=== PATIENT | female | born 1980 | race Caucasian/White ===

== ENCOUNTER 2016-10-12 02:31 | Outpatient (CLI) | payer MEDICAID ==
[~2016-10-12] VITALS: Ht 154.9 cm; Wt 93.0 kg
[2016-10-12 02:55] VITALS: BP 160/99
[2016-10-12 03:24] LABS: URINE BILIRUBIN - DIPSTICK NEGATIVE (NEG); URINE BLOOD TRACE-INTACT (NEG)
[2016-10-12 05:00] LABS: HEMOGLOBIN 12.4 g/dL (12.2-16.2); LYMPH # 2.7 K/mm3 (0.7-4.5); LYMPH % 24.4 % (10-50.0)
== END 2016-10-12 05:20 | disposition home or self-care (01) ==
LOC: OB 02:31 → OBOUT 02:31
PROVIDERS: Obstetrics & Gynecology
DX: O26.93 Pregnancy related conditions, unspecified, third trimester (principal); Z3A.39 39 weeks gestation of pregnancy; R10.9 Unspecified abdominal pain; R19.7 Diarrhea, unspecified

== ENCOUNTER 2016-10-17 00:21 | Inpatient (IN) | payer MEDICAID ==
[~2016-10-17] VITALS: Ht 154.9 cm; Wt 92.1 kg
[2016-10-17 05:08] VITALS: BP 169/97
[2016-10-17] MEDS ORDERED: NOMEDS XX (05:23)
--- NOTE | 2016-10-17 05:59 | ACUTE CARE PROGRESS NOTE (QUA) ---
Progress Notes Subjective Date 10/17/16 Time 0557 Note This 36-year-old 4, para 2, Ab1 white female was admitted at 39-6/7 weeks with irregular contractions. Her cervix is 2 cm dilated, 75 percent effaced, with a high presenting vertex. Bag of water intact. Her blood pressure is 159/88. Her deep tendon reflexes are normal. The plan is to administer an epidural, and augmented with intravenous Pitocin. If her blood pressure remains elevated, we will start on magnesium sulfate. She also desires a tubal ligation. Assessment/Plan This inpt stay is expected to cross 2 MNs from start of care Yes (OB delivery) at 8634
[2016-10-17 06:15] LABS: HEMOGLOBIN 12.5 g/dL (12.2-16.2)
[2016-10-17 06:16] LABS: LYMPH # 2.8 K/mm3 (0.7-4.5); LYMPH % 32.2 % (10-50.0)
[2016-10-17 06:59] LABS: ABO BLOOD TYPE AB
[2016-10-17 07:00] LABS: RH BLOOD TYPE POSITIVE
[2016-10-17 09:04] LABS: URINE BLOOD TRACE-INTACT (NEG)
[2016-10-17 09:21] LABS: URINE BILIRUBIN - DIPSTICK NEGATIVE (NEG)
--- NOTE | 2016-10-17 09:42 | ACUTE CARE PROGRESS NOTE (QUA) ---
Progress Notes Subjective Date 10/17/16 Time 0940 Note The patient is having good contractions and has an epidural in situ. Cervix is now 3 cm and 90 percent, with presenting vertex at -2 station. Amniotomy reveals clear fluid, and an internal monitors placed. Her blood pressure is 126/68. DTRs are normal. Intravenous Pitocin is on board. Assessment/Plan This inpt stay is expected to cross 2 MNs from start of care Yes (OB delivery) at 0920
--- NOTE | 2016-10-17 11:27 | ACUTE CARE PROGRESS NOTE (QUA) ---
Progress Notes Subjective Date 10/17/16 Time 1126 Note The baby looks good on the monitor, and the patient is having strong regular contractions. Cervix is 90 percent, 5 cm, with the presenting vertex still very high. Plan: Continue to observe on IV Pitocin. Assessment/Plan This inpt stay is expected to cross 2 MNs from start of care Yes (OB delivery) at 1126
--- NOTE | 2016-10-17 12:45 | ACUTE CARE PROGRESS NOTE (QUA) ---
Progress Notes Subjective Date 10/17/16 Time 1243 Note Cervix is now completely effaced and 5-6 cm but the head is still quite high and locked above the pelvis. Baby still looks good on the monitor. The plan is to observe. I discussed the possibility of with the patient and her . Assessment/Plan This inpt stay is expected to cross 2 MNs from start of care Yes (OB delivery) at 1242
--- NOTE | 2016-10-17 14:39 | ACUTE CARE PROGRESS NOTE (QUA) ---
Progress Notes Subjective Date 10/17/16 Time 1438 Note In spite of good contractions, there is been no progress whatsoever and no descent whatsoever. I've discussed this with the patient and her . The plan is for primary and bilateral tubal ligation. Intravenous Pitocin has been discontinued. Assessment/Plan This inpt stay is expected to cross 2 MNs from start of care Yes (OB delivery) at 1432
--- NOTE | 2016-10-17 16:59 | Operative Note ---
Procedure/Operative Record Date of Procedure: 10/17/16 Referring physician: Dr. Garcia Pre-op diagnosis: 1. Term intrauterine . 2. Cephalopelvic disproportion. 3. Failure to progress. 4. Desire for sterilization. Post-op diagnosis: Same, 9/9, 7 lbs. 14 oz., 19 inch female , born at 1610. Procedure performed: Primary low transverse cervical section and bilateral tubal ligation. Surgeon: Joe Burnham Plastic Eye Technician(s): Dr. Smalls Anesthesia: Epidural, CIRCUS TRAIN SUPERVISOR Feeback Indications: 1. Term intrauterine . 2. Cephalopelvic disproportion. 3. Failure to progress. 4. Desire for sterilization. Description of procedure: After the patient was prepped and draped in usual fashion and epidural anesthesia was activated, a low Pfannenstiel incision was made across the midline, and the fat and fascia were in usual fashion, bleeders being clamped and coagulated along the way. The peritoneum was entered with a knife, and extended above and below with Metzenbaum scissors. The bladder peritoneum was sharply and bluntly dissected from the area of incision, and the bladder was protected with a bladder blade. Low transverse fashion with a knife, and the incision was extended bluntly, bilaterally. The baby was found to be in the OP position of the vertex and, with appropriate fundal pressure, the head was easily delivered. There was no nuchal cord, no was there any meconium. The babies naso-and oropharynx were bulb suctioned, and the baby cried spontaneously on the abdomen, as was delivered. The cord was clamped and cut, 3 vessels were noted to be within the cord, and cord blood was obtained. The cord pH was 7.32. The baby was handed into the arms of the attending clinical nursing director, Dr. Garcia, who assigned Apgars of 9 at 1 minute and 9 at 5 minutes to this 7 lbs. 14 oz., 19 inch female , born at 1610. In excellent condition, along with the father, who at the present in the operating room. The uterus was closed in 2 layers, the first a running locked suture of #1 Vicryl as an endometrial layer, and the second a running unlocked suture of #1 Vicryl as a myometrial layer, imbricating over the first. The bladder peritoneum was closed with a running unlocked suture of 2-0 Vicryl. Blood and clots within swept from the gutters, and the tubes and ovaries were inspected and found to be normal. The patient was again asked if she wishes to proceed with tubal sterilization, and she concurred. Therefore, first the RIGHT tube and then the LEFT was grasped in its midsection. The base of the tented up portion of each tube was crushed with a Raiza clamp, and ligated with 2-0 Vicryl. The intervening segment of each tube was excised with Metzenbaum scissors, and the stumps coagulated with a Bovie. The peritoneum was then grasped with 3 Raiza clamps, and closed with a running semi-locked suture of 0 Vicryl. The muscle was approximated with a running unlocked suture of 0 Vicryl. The fascia was closed with a running locked suture of #1 Vicryl. The subcutaneous fat and Sammy's fascia were closed with a running unlocked suture of 2-0 Vicryl. The skin was closed with a subcuticular suture of 3-0 Vicryl, and appropriately dressed. The sponge and needle counts correct. The urine was clear in the Hill catheter. A pelvic examination at the close of the procedure express blood and clots from the involuting uterus, with IV Pitocin running. The patient tolerated the procedure well, was taken to PACU in excellent condition. Her blood type is AB positive. Rubella titer is immune. She plans to bottlefeed. EBL (ml): 400 Complications: None Specimens: Bilateral tubal segments at 0937
[2016-10-17 18:00] VITALS: BP 166/92
[2016-10-17 19:23] VITALS: BP 126/60
[2016-10-18 06:56] LABS: HEMOGLOBIN 8.8 g/dL (12.2-16.2)
--- NOTE | 2016-10-18 07:59 | ACUTE CARE PROGRESS NOTE (QUA) ---
Progress Notes Subjective Date 10/18/16 Time 0757 Note She is doing well this morning. She is eating and drinking and ambulating. She is bottlefeeding. Her lochia is normal. Her hemoglobin is slightly low this morning but she is asymptomatic. Her color actually looks good. Patient/family reports: feeling better, no complaints Objective Findings Last VS-Temp:98.3 B/P:126/60 Pulse:73 Resp:18 SaO2:99 ROOM AIR Last weight lbs:203 oz:0 K.080 Method:Floor Scales Laboratory Tests 10/18/16 0615: Hgb 8.8 L, Hct 26.7 L 10/17/16 1610: Cord Blood pH 7.32 L 10/17/16 0850: Urine Color YELLOW, Urine Appearance CLEAR, Urine pH 6.0, Ur Specific Squires >= 1.030, Urine Protein 3+ H, Urine Ketones 3+ H, Urine Blood TRACE-INTACT, Urine Nitrate NEGATIVE, Urine Bilirubin NEGATIVE, Urine Urobilinogen 1.0, Ur Leukocyte Esterase NEGATIVE, Urine Bacteria TRACE, Urine Glucose NEGATIVE Exam General appearance: normal appearance, alert, awake, no acute distress Eyes: normal exam ENT: normal exam, mucous membranes moist Neck: normal inspection ABD: normal exam, non-distended Genitourinary: normal voiding & quantity Skin: normal exam, normal color Reviewed: vital signs, lab results Assessment/Plan Problem List 1. Delivered by section 2. Fetopelvic disproportion Patient condition Stable Plan: continue current care This inpt stay is expected to cross 2 MNs from start of care Yes (OB delivery) Comments: She is doing well this morning. We will plan to repeat her H and H to more morning. at 0758
--- NOTE | 2016-10-18 15:37 | PHARMACY CLINIC NOTE ---
Patient Demographics Patient Demographics Admission date: 10/17/16 Date: 10/18/16 Time: 153 Allergies Coded Allergies: Penicillins (Mild, I-HIVES 10/17/16) HEIGHT- FT: 5 IN: 1.00 K.080 VTE General Information Labs: Laboratory Tests 10/18 0615 Hematology Hgb (12.2 - 16.2 g/dL) 8.8 L Hct (37.0 - 47.0 %) 26.7 L Disclaimer The following section includes nursing documentation that has been pulled in for pharmacy review. VTE prophylaxis NQF [id number] VTE prophylaxis ordered? Yes Type of prophylaxis/treatment: ICD at 1535
--- NOTE | 2016-10-18 19:00 | ACUTE CARE PROGRESS NOTE (QUA) ---
Progress Notes Subjective Date 10/18/16 Time 1845 Note Pt without any complaints. Denies BRUCE, blurred vision, RUQ pain, scotomata or dizziness. Pt states she's been ambulating without difficulties. Voiding and passing flatus. Pt bottle feeding baby. Pain well controlled and lochia improving Patient/family reports: no complaints Objective Findings Last VS-Temp:98 B/P:160-199/70-99 Pulse:122 Resp:18 SaO2:99 ROOM AIR Last weight lbs:203 oz:0 K.080 Method:Floor Scales Exam General appearance: normal appearance (Family at bedside), alert, awake, face symmetric, no acute distress (family at bedside) Eyes: normal exam Cardiovascular: normal exam Respiratory: aerating well, clear to auscultation, good air movement, normal breath sounds, no respiratory distress ABD: no rebound (no RUQ tenderness, min TTP), soft Genitourinary: normal voiding & quantity Extremities: full range of motion, moves all, edema (2+ pitting edema) Skin: normal exam Reviewed: vital signs, lab results, nursing notes Assessment/Plan Problem List 1. Delivered by section 2. Fetopelvic disproportion Patient condition Stable Plan: order additional tests, POD#1 s/p PCS +BTL secondary to CPD, now with elevated BP in the severe range. Pt without h/o elevated BP, I suspect this is severe feature preeclampsia. [facility] labs order and results pending. Pt advised on need to start Magnesium Sulfate for seizure prophlaxis per ACOG recommendation. I have discussed this management with pt and her family and the understand the severity of such diagnosis. Pt doing well. Will monitor closely This inpt stay is expected to cross 2 MNs from start of care Yes (OB delivery) at 6722
[2016-10-18 19:25] LABS: HEMOGLOBIN 9.1 g/dL (12.2-16.2); LYMPH # 2.3 K/mm3 (0.7-4.5); LYMPH % 17.5 % (10-50.0)
--- NOTE | 2016-10-18 21:05 | ACUTE CARE PROGRESS NOTE (QUA) ---
Progress Notes Subjective Date 10/18/16 Time 2102 Note Labs reviewed. AST slightly elevated at 44. Cr wnl. Hg stable. pt tearful after ruiz placement. no complaints Assessment/Plan Problem List 1. Delivered by section 2. Fetopelvic disproportion This inpt stay is expected to cross 2 MNs from start of care Yes (OB delivery) Comments: preeclampsia with severe features. cont 24hr mag sulfate if BP still elevated post mag sulfate, will begin antihypertensive at 2101
[2016-10-18 21:40] VITALS: BP 159/76
[2016-10-18 21:50] LABS: URINE BILIRUBIN - DIPSTICK NEGATIVE (NEG); URINE BLOOD 1+ (NEG)
[2016-10-19] VITALS (27 sets, daily range): BP systolic 138–205; BP diastolic 73–124
[2016-10-19 07:03] LABS: HEMOGLOBIN 8.6 g/dL (12.2-16.2)
--- NOTE | 2016-10-19 08:55 | ACUTE CARE PROGRESS NOTE (QUA) ---
See Addendum Progress Notes Subjective Date 10/19/16 Time 0839 Note Pt c/o BRUCE last night but since resolved. Denies BRUCE currently, RUQ pain, blurred vision, lightheadedness, dizziness or weakness. Denies abd pain. +Flatus without BM. Pt very tearful as she desires removal of ruiz catheter. States the catheter is so uncomfortable that she's unable to lift her child. Patient/family reports: pain in vaginal area secondary to ruiz catheter Objective Findings Last VS-Temp:98.1 B/P:150-200/70-110s Pulse:121 Resp:18 SaO2:99 ROOM AIR Last weight lbs:203 oz:0 K.080 Method:Floor Scales Exam General appearance: face symmetric (swollen b/l orbits), no acute distress, well-developed, well-nourished, crying Cardiovascular: normal exam Respiratory: normal exam, clear to auscultation, chest non-tender, good air movement, normal breath sounds, no respiratory distress ABD: non-distended, normal bowel sounds, no rebound, soft, no tenderness (min TTP), no guarding, scar (incision C/D/I w/o erythema ), No induration of incision Genitourinary: no hematuria, urine clear, catheter in place Extremities: no calf tenderness, edema (2+), 2+ DTR Skin: normal exam Neuro: normal exam Reviewed: medications, vital signs, lab results, nursing notes Assessment/Plan Problem List 1. Delivered by section 2. Fetopelvic disproportion 3. Preeclampsia 4. Anemia Patient condition Stable Plan: continue current care This inpt stay is expected to cross 2 MNs from start of care Yes (OB delivery) Comments: Preeclampsia with severe features: Continue Mag sulfate for seizure prophylaxis for 24hours. D/C at 1940hrs today. I/O reviewed and adequate. BP remains elevated despite magnesium. Parameter for Labetalol 20mg IV [id number] for BPs >160 /100s. Pt has received one dose during my rounds. Pt very tearful about ruiz catheter in place. Discussed sangita R/B/A/I of ruiz catheter. Pt adamant and declines ruiz. Ruiz has been removed but will continue to monitor her I/Os. Pt advised my required oral antihypertensive post Mag for BP control. POD#2 s/p PCS+BTl: Pt doing well from stand point of surgery. Cont Postop care. Place SCD for DVT prophylaxis. Pt to begin amublating post magnesium. Anemia: likely secondary to acute blood loss of surgery. Hg stable at 8, pt asymptomatic. Will begin Ferrous sulfate TID with colace to avoid constipation Discharge planning: Once BP controlled, likely d/c in am. Will keep close montior on BP post mag today. at 0854
--- NOTE | 2016-10-19 19:51 | ACUTE CARE PROGRESS NOTE (QUA) ---
Progress Notes Subjective Date 10/19/16 Time 1945 Note Pt c/o mild headache. Denies blurred vision, RUQ pain, dizziness, weakness or lightheadedness. Pain well controlled. Ready to get out of bed and moving. Patient/family reports: feeling better Objective Findings Last VS-Temp:98.0 B/P:140-170/70-90s Pulse:96 Resp:16 SaO2:99 ROOM AIR Last weight lbs:203 oz:0 K.080 Method:Floor Scales Exam General appearance: normal appearance, no acute distress Eyes: normal exam (swollen eye lids) Cardiovascular: normal exam Respiratory: normal exam ABD: normal exam, normal bowel sounds (min TTP), no rebound, no guarding, no organomegaly Extremities: edema (2+ pitting pedal edema) Musculoskeletal: normal exam Skin: normal exam, other (incision C/D/I) Neuro: normal exam Reviewed: medications, vital signs Assessment/Plan Problem List 1. Delivered by section 2. Fetopelvic disproportion 3. Preeclampsia 4. Anemia Patient condition Stable Plan: continue current care, make medication changes This inpt stay is expected to cross 2 MNs from start of care Yes (OB delivery) Comments: Preeclampsia with severe features, s/p 24hours mag sulfate, d/c'd at 1940hrs. BP still elevated, started on procardia XL 60mg. If at midnight, still elevated, will add 30mg for total of Procardia xL 90mg daily. If BP stable tomorrow, will d/c home. Anemia-stable POD#2-stable at 1950
[2016-10-20 08:25] VITALS: BP 137/76
--- NOTE | 2016-10-20 11:04 | Discharge Summary ---
Discharge Summary Admission date: 10/17/16 Discharge date: 10/20/16 Discharge diagnoses: Primary C/S with BTL secondary to CPD Preeclampsia with severe features Anemia secondary to acute blood loss Clinical note: 26 y/o G3 now P3 with failed IOL secondary to CPD with PCS+BTL. Uncomplicated course Course in hospital: On POD#1 pt was noted to be having severe range blood pressures with mild headache. ON review of history, elevated BP noted towards end of . PIh labs were obtained. AST slightly elevated and had proteinuria. Pt was hence diagnosed with preeclampsia with severe features. This finding was discussed with pt and need for magnesium sulfate was started x 24hrs. Pt had excellent input and output with therapeutic mag level throughout course. Pt was then initally started on Procardia xL 60mg but was still having elevated BPs. Procardia XL was then increased to 90mg daily. BPs now in the normal range and pt asymptomatic. Pt to be d/c home today on Procardia xL 90mg po daily. Pt as counselled on R/B/A/I of hyper and hypotension. Was advised to f/u in 1 week for BP check at her primary OB office. Postoperative course was uncomplicated. Pain was well controlled. No need for narcotics during postop course. Anemia was noted but was attributed to acute blood loss from C/S. Pt was asymptomatic and was started on ferrous sulfate. Plans for ongoing care: Pt to be monitored closely for her elevated BP. Pt to f/u with here primary OB in 1 week for BP check Discharge medications Percocet 5/325mg 1-2 tabs po Q4-6hr pp Ferrous sulfate 325mg po TID Colace 100mg po BID Motrin 600mg po Q8hr pp Procardia xL 90mg po QD DC/follow-up instructions f/u with primary OB in 1 week for BP check Keep incision clean, dry, and intact Notify your primary OB of headache, dizziness, weakness, fever, chills, nausea or vomiting Ambulate frequently Avoid anything per vagina x4-6wks until cleaned by primary OBGYN physician Condition at discharge STABLE at 1103
[2016-10-20] MEDS ORDERED: NIFEDIPINE ER90 MG PO (11:11)
[2016-10-20] MEDS ORDERED: HYDROCODONE-APA1 TA1 PO (11:11)
[2016-10-20] MEDS ORDERED: [UNRECOGNIZED DRUG - OTHER] PO (11:11)
[2016-10-20] MEDS ORDERED: MOTRIN 600MG.600 MG PO (11:11)
== END 2016-10-20 11:47 | disposition home or self-care (01) | DRG 766 ==
LOC: OB 00:21
PROVIDERS: Nurse Practitioner Obstetrics & Gynecology; Obstetrics & Gynecology
PROC: 0U570ZZ Destruction of Bilateral Fallopian Tubes, Open Approach (ICD-10-PCS; 2016-10-17)
PROC: 10D00Z1 Extraction of Products of Conception, Low, Open Approach (ICD-10-PCS; principal; 2016-10-17 16:00)
DX: O64.8XX0 Obstructed labor due to other malposition and malpresentation, not applicable or unspecified (principal); D50.0 Iron deficiency anemia secondary to blood loss (chronic); Z3A.39 39 weeks gestation of pregnancy; Z37.0 Single live birth; O14.95 Unspecified pre-eclampsia, complicating the puerperium
CPT/HCPCS: C1758; J2405; S0077